=== PATIENT | female | born 1965 | race Caucasian/White ===

== ENCOUNTER 2021-07-20 13:10 | Emergency (ER) | payer OTHER ==
[~2021-07-20] VITALS: Ht 160 cm; Wt 96.2 kg
[2021-07-20] MEDS ORDERED: IBUP600 PO (14:31)
[2021-07-20] MEDS ORDERED: ACETAMINOPHEN500 MG PO (14:31)
== END 2021-07-20 14:48 | disposition home or self-care (01) ==
LOC: ER 13:10
DX: S22.31XA Fracture of one rib, right side, initial encounter for closed fracture (principal); W19.XXXA Unspecified fall, initial encounter
CPT/HCPCS: 71046; 71100; 99283-25

== ENCOUNTER 2022-08-06 07:56 | Day surgery (SDC) | payer OTHER ==
[~2022-08-06] VITALS: Ht 160 cm; Wt 99.1 kg
[~2022-08-06 07:56] MED LIST: ACETAMINOPHEN500 MG PO; IBUP600 PO
[2022-08-06] MEDS ORDERED: Prinivil10 MG PO (08:16)
[2022-08-06] MEDS ORDERED: LEVSOD75 PO (08:17)
[2022-08-06] MEDS ORDERED: AMLO5 PO (08:17)
[2022-08-06] MEDS ORDERED: VITAMIN D325 MC3 (08:18)
[2022-08-06] MEDS ORDERED: LORA10ER PO (08:19)
[2022-08-06] MEDS ORDERED: UBID10 PO (08:19)
--- NOTE | 2022-08-06 08:25 | NUR ---
Ambulatory in Day Surgery History, Chart, Medications and Allergies reviewed before start of procedure.Pre-Op teaching done. Pt verbalizes understanding. Patient States Post-Procedure ride home has been arranged. Patient confirms NPO status and agrees with scheduled surgery.
--- NOTE | 2022-08-06 08:51 | NUR ---
2 MISSED ATTEMPTS BY ORD.RMA
--- NOTE | 2022-08-06 09:27 | NUR ---
08/06/22 0927 Arcelia Hess HISTORY, CHART, MEDICATIONS AND ALLERGIES REVIEWED BEFORE START OF PROCEDURE. PATIENT CONFIRMS NPO STATUS AND AGREES WITH SCHEDULED PROCEDURE. 3-LEAD EKG REVIEWED WITH PHYSICIAN PRIOR TO START OF PROCEDURE. MONITOR INTACT WITH CONTINUOUS PULSE OXIMETRY,CAPNOGRAPHY, 3-LEAD EKG, INTERMITTENT BP. SUPPLEMENTAL O2 TO BE TITRATED THROUGHOUT PROCEDURE TO MAINTAIN O2 SATURATION ABOVE 90%. PATIENT DETERMINED TO BE ASA APPROPRIATE FOR PROPOFOL SEDATION PRIOR TO START OF PROCEDURE BY DR. REYES
--- NOTE | 2022-08-06 10:11 | NUR ---
VSS. TOLERATING PO FLUIDS. NO C/O. RIDE ARRANGED HOME WITH A FRIEND. Discharge instructions reviewed with patient. Patient verbalizes understanding. Copy given to patient to take home.
== END 2022-08-06 10:09 | disposition home or self-care (01) ==
LOC: ORSCMMR 07:56 → ORD 08:30 → ORSCMMR 10:09
PROVIDERS: Internal Medicine Gastroenterology
PROC: 0DDN8ZX Extraction of Sigmoid Colon, Via Natural or Artificial Opening Endoscopic, Diagnostic (ICD-10-PCS; principal; 2022-08-06 08:30)
PROC: 0DBN8ZX Excision of Sigmoid Colon, Via Natural or Artificial Opening Endoscopic, Diagnostic (ICD-10-PCS; principal; 2022-08-06 08:30)
DX: K62.5 Hemorrhage of anus and rectum (principal); R19.4 Change in bowel habit; Z86.010 Personal history of colon polyps; K63.5 Polyp of colon; K64.4 Residual hemorrhoidal skin tags; K57.30 Diverticulosis of large intestine without perforation or abscess without bleeding; I10 Essential (primary) hypertension; E03.9 Hypothyroidism, unspecified; E66.9 Obesity, unspecified; Z68.39 Body mass index [BMI] 39.0-39.9, adult; Z79.899 Other long term (current) drug therapy
CPT/HCPCS: 88305; J2250; J2704; J7120